=== PATIENT | female | born 1995 | race Two or more races ===

== ENCOUNTER 2024-02-22 06:31 | Emergency (ER) | payer OTHER ==
[~2024-02-22] VITALS: Ht 152.4 cm; Wt 63.5 kg
[2024-02-22] MEDS ORDERED: CEFTRIAXONE SODIUM 1,000 MG VIAL IM STA (08:24)
[2024-02-22] MEDS ORDERED: DEXAMETHASONE SODIUM PHOSPHATE 4 MG/ML VIAL IM STA (08:24)
[2024-02-22] MEDS ORDERED: LIDOCAINE HCL 1% 10ML VIAL ONE (08:30)
[2024-02-22] MEDS ORDERED: DEXAMETHASONE SODIUM PHOSPHATE 4 MG/ML VIAL ONE (08:30)
[2024-02-22] MEDS ORDERED: CEFTRIAXONE SODIUM 1,000 MG VIAL ONE (08:30)
== END 2024-02-22 08:37 | disposition home or self-care (01) ==
LOC: ER 06:33
DX: J03.80 Acute tonsillitis due to other specified organisms (principal)

== ENCOUNTER 2024-12-15 21:18 | Emergency (ER) | payer OTHER ==
[~2024-12-15] VITALS: Ht 152.4 cm; Wt 64.0 kg
[~2024-12-15 21:18] MED LIST: DOXYCYCLINE HY100 M2 PO; DOXYCYCLINE HY100 M3 PO; INTESTINEX680 M1 PO; KETO10TA2 PO; PEPCID40 MG PO; ZOFRAN4 MG PO
[2024-12-15] MEDS ORDERED: CEFTRIAXONE SODIUM 1,000 MG VIAL IM ONE (22:45)
[2024-12-15] MEDS ORDERED: ACETAMINOPHEN 500 MG GEL..CAP PO ONE (22:45)
[2024-12-15] MEDS ORDERED: GUAIFENESIN 200 MG/10 ML BLIST.PACK PO ONE ×2 (22:45→23:05)
[2024-12-15] MEDS ORDERED: KETOROLAC TROMETHAMINE 60 MG VIAL IM ONE ×2 (22:45→23:04)
[2024-12-15] MEDS ORDERED: CEFTRIAXONE SODIUM 1,000 MG VIAL ONE (23:05)
[2024-12-15 23:34] LABS: BASO % 0.8 % (0.1-1.2); EOS # 0.69 (0.04-0.54); EOS % 7.5 % (0.7-7.0); HEMATOCRIT 34.7 % (34.1-44.9); HEMOGLOBIN 11.6 g/dL (11.2-15.7); LYMPH # 2.42 (1.18-3.74); LYMPH % 26.3 % (19.3-53.1); MONO # 0.99 (0.24-0.82); MONO % 10.8 % (4.7-12.5); NEUT # 4.99 (1.56-6.13); NEUT % 54.2 % (34.0-71.1); PLATELET COUNT 395 K/uL (163-369); RED BLOOD COUNT 4.47 M/uL (3.93-5.22)
[2024-12-16 00:56] LABS: INFLUENZA A AG NEGATIVE (NEGATIVE)
[2024-12-16 01:32] LABS: COVID-19 AG POSITIVE (NEGATIVE)
== END 2024-12-16 02:43 | disposition home or self-care (01) ==
LOC: ER 21:18
PROVIDERS: General Practice
DX: U07.1 COVID-19 (principal); J06.9 Acute upper respiratory infection, unspecified; R05.9 Cough, unspecified

== ENCOUNTER 2025-07-15 11:22 | Emergency (ER) | payer OTHER ==
[~2025-07-15] VITALS: Ht 152.4 cm; Wt 68.0 kg
[2025-07-15] MEDS ORDERED: 0.9 % SODIUM CHLORIDE 1,000 ML IV STA (13:39)
[2025-07-15] MEDS ORDERED: FAMOTIDINE/PF 20 MG/2 ML VIAL IV STA (13:40)
[2025-07-15] MEDS ORDERED: ONDANSETRON HCL 2 MG/ML VIAL IV STA (13:40)
[2025-07-15] MEDS ORDERED: METHYLPREDNISOLONE SOD SUCC 125 MG VIAL IV STA (13:47)
[2025-07-15] MEDS ORDERED: ONDANSETRON HCL 2 MG/ML VIAL ONE (13:51)
[2025-07-15] MEDS ORDERED: FAMOTIDINE/PF 20 MG/2 ML VIAL ONE (13:51)
[2025-07-15] MEDS ORDERED: ALBUTEROL SULFATE 3 ML/2.5 MG AMPUL.NEB IH SCH (14:00)
[2025-07-15] MEDS ORDERED: MONTELUKAST SODIUM 10 MG TABLET PO ONE (14:00)
[2025-07-15 14:26] LABS: BASO % 0.6 % (0.1-1.2); EOS # 0.46 (0.04-0.54); EOS % 3.7 % (0.7-7.0); LYMPH # 3.49 (1.18-3.74); LYMPH % 28.3 % (19.3-53.1); MEAN PLATELET VOLUME 9.40 fl (9.4-12.4); MONO # 0.70 (0.24-0.82); MONO % 5.7 % (4.7-12.5); NEUT # 7.45 (1.56-6.13); NEUT % 60.5 % (34.0-71.1); RED CELL DISTRIBUTION WIDTH 14.1 % (11.6-14.4)
[2025-07-15] MEDS ORDERED: METHYLPREDNISOLONE SOD SUCC 40 MG VIAL ONE (14:27)
[2025-07-15 14:55] LABS: INR 1.06
[2025-07-15 14:57] LABS: URINE APPEARANCE Clear; URINE BILIRRUBIN Negative (NEGATIVE); URINE BLOOD Negative; URINE COLOR Yellow; URINE GLUCOSE Negative (NEGATIVE); URINE KETONE Negative (NEGATIVE); URINE LEUKOCYTE Negative; URINE NITRATE Negative; URINE PROTEIN Negative (NEGATIVE); URINE UROBILINOGEN 0.2 E.U./dl
[2025-07-15 14:58] LABS: URINE BACTERIA 343.1 uL (0.0-1933); URINE EPITHELIAL CELLS 17.1 uL (0.0-38.8); URINE WBC 16.5 uL (0.0-23.2)
[2025-07-15 15:08] LABS: URINE CAST 0.56 uL (0.0-1.40); URINE RBC 0.9 uL (0.0-20.8)
[2025-07-15 15:43] LABS: ALT/SGPT 18.0 U/L (12-78); AST/SGOT 11.0 U/L (15-37); BILIRUBIN TOTAL 0.23 mg/dL (0.3-1.2); BUN CREA RATIO 12.0 (7.0-25.0); CREATININE SERUM 0.68 mg/dL (0.55-1.02); GFR 102.29; GLOBULINA 4.2 G/DL (2.4-3.5); GLUCOSE FASTING 79.0 mg/dL (65-100); OSMOLALITY SERUM 280.0 MOSM/KG (275-295)
[2025-07-15] MEDS ORDERED: ALBUTEROL SULFATE 3 ML/2.5 MG AMPUL.NEB IH ONE (15:58)
[2025-07-15 17:20] LABS: COVID-19 AG NEGATIVE (NEGATIVE)
== END 2025-07-15 19:09 | disposition home or self-care (01) ==
LOC: ER 11:22
PROVIDERS: Physician Assistant Medical
DX: J98.8 Other specified respiratory disorders (principal); K52.89 Other specified noninfective gastroenteritis and colitis; E86.0 Dehydration; Z20.822 Contact with and (suspected) exposure to COVID-19